=== PATIENT | female | born 1950 | race Caucasian/White ===

== ENCOUNTER → 2017-02-14 | Outpatient (CLI) | payer BC ==
--- NOTE | 2017-02-14 19:34 | PCVCIMAG ---
EXAM: BILATERAL SUPERFICIAL VENOUS DUPLEX INDICATION: Leg pain and swelling. FINDINGS: Right leg: No thrombus in the common femoral, main femoral, or popliteal veins. These veins are compressible. Right Great Saphenous Vein: At the saphenofemoral junction the diameter is 8.6 mm, in the mid thigh it is 8.5 mm, and in the calf it is 7.6 mm. There is significant venous insufficiency/reflux throughout. Venous insufficiency/reflux duration is 1.6 seconds. Right Small Saphenous Vein: At the saphenopopliteal junction the diameter is 4.5 mm, and in the calf it is 2.6 mm. There is not significant venous insufficiency/reflux throughout. Venous insufficiency/reflux duration is 0 seconds. There is a cranial extension present. Left leg: No thrombus in the common femoral, main femoral, or popliteal veins. These veins are compressible. Left Great Saphenous Vein: At the saphenofemoral junction the diameter is 11.4 mm, in the mid thigh it is 12.5 mm, and in the calf it is 11.1 mm. There is significant venous insufficiency/reflux throughout. Venous insufficiency/reflux duration is 3.4 seconds. Left Small Saphenous Vein: At the saphenopopliteal junction the diameter is 5.4 mm, and in the calf it is 5.3 mm. There is a significant venous insufficiency/reflux throughout. Venous insufficiency/reflux duration is 2.7 seconds. There is a cranial extension present. IMPRESSION: Right Great Saphenous Vein: Significant venous insufficiency/reflux is present as noted above. Right Small Saphenous Vein: No significant venous insufficiency/reflux is present as noted above. Left Great Saphenous Vein: Significant venous insufficiency/reflux is present as noted above. Left Small Saphenous Vein: Significant venous insufficiency/reflux is present as noted above. Incidental note is made of a 1.0 x 3.4 x 5.2 cm right popliteal cyst and a 2.0 x 3.0 x 3.9 cm left popliteal cyst. LOC:[id number]
== END | disposition home or self-care (01) ==
LOC: PCVCIMAG 15:09
PROVIDERS: ATTEND Nuclear Medicine Nuclear Cardiology
DX: I83.93 Asymptomatic varicose veins of bilateral lower extremities (principal); M71.22 Synovial cyst of popliteal space [Baker], left knee; M71.21 Synovial cyst of popliteal space [Baker], right knee
CPT/HCPCS: 93970

== ENCOUNTER → 2017-09-06 | Outpatient (CLI) | payer BC ==
[~2017-09-06] MED LIST: DIAZEPAM 10 MG TABLET.; IOHEXOL 300 MG/ML 100ML VIAL.; IV NORMAL SALINE 500ML BAG 500 ML; LIDOCAINE 1% PF 30 ML VIAL.; MIDAZOLAM HCL/PF 2 MG/2 ML VIAL.; fentaNYL PF VIAL 100 MCG/2 ML VIAL
== END | disposition home or self-care (01) ==
LOC: PCVCINTER 10:33
DX: I83.813 Varicose veins of bilateral lower extremities with pain (principal); I87.2 Venous insufficiency (chronic) (peripheral); I10 Essential (primary) hypertension; E66.9 Obesity, unspecified; Z68.37 Body mass index [BMI] 37.0-37.9, adult; Z90.49 Acquired absence of other specified parts of digestive tract; Z90.710 Acquired absence of both cervix and uterus; Z72.89 Other problems related to lifestyle; Z84.89 Family history of other specified conditions
CPT/HCPCS: 36012; 37252; 37253; 75822; 75825; 76937; 99152; 99153; C1751; C1753; C1769; C1894; J1644; J2250; J3010; J7040; Q9967

== ENCOUNTER → 2017-09-09 | Outpatient (CLI) | payer OTHER ==
[~2017-09-09] MED LIST changes: +ARNICA TOPICAL GEL 1.5OZ TUBE. TP; +CEPHALEXIN 250 MG CAPSULE.; -IOHEXOL 300 MG/ML 100ML VIAL.; +IV NORMAL SALINE 1000ML BAG 1,000 ML; -IV NORMAL SALINE 500ML BAG 500 ML; -LIDOCAINE 1% PF 30 ML VIAL.; +LIDOCAINE 1%/EPI 1:100,000 20 ML VIAL.; -MIDAZOLAM HCL/PF 2 MG/2 ML VIAL.; +SODIUM BICARBONATE 50 MEQ/50 ML VIAL.; -fentaNYL PF VIAL 100 MCG/2 ML VIAL
== END ==
LOC: PCVCINTER 13:40
DX: I83.813 Varicose veins of bilateral lower extremities with pain (principal); I87.303 Chronic venous hypertension (idiopathic) without complications of bilateral lower extremity
CPT/HCPCS: 36012; 36478; 36479; 37253; 75822; 75825; 76937; C1751; C1769; C1894; J3490; J7030